=== PATIENT | female | born 1960 | race Caucasian/White ===

== ENCOUNTER → 2017-07-17 | Outpatient (CLI) | payer OTHER ==
[~2017-07-17] MED LIST: AMLO2.5T PO; AUGM875T PO; HYDR50TA3 PO; IBUP200T47 PO
[2017-07-17 11:58] LABS: AUTOMATED NEUTROPHIL # 4.1 TH/MM3 (1.8-7.7); BASOPHIL # 0.1 TH/MM3 (0-0.2); BASOPHIL % 0.8 % (0.0-2.0); EOSINOPHIL # 0.2 TH/MM3 (0-0.4); EOSINOPHIL % 3.5 % (0.0-4.0); HEMOGLOBIN 15.1 GM/DL (11.6-15.3); LYMPH % 25.3 % (9.0-44.0); LYMPHOCYTE # 1.7 TH/MM3 (1.0-4.8); MEAN CELL VOLUME 87.1 FL (80.0-100.0); MEAN CORPUSCULAR HEMOGLOBIN 28.6 PG (27.0-34.0); MEAN CORPUSCULAR HGB CONC 32.8 % (32.0-36.0); MEAN PLATELET VOLUME 8.4 FL (7.0-11.0); MONO % 6.9 % (0.0-8.0); MONOCYTE # 0.5 TH/MM3 (0-0.9); NEUT % 63.5 % (16.0-70.0); PLATELET COUNT 274 TH/MM3 (150-450); RED BLOOD COUNT 5.28 MIL/MM3 (4.00-5.30); RED CELL DISTRIBUTION WIDTH 12.8 % (11.6-17.2); WHITE BLOOD COUNT 6.6 TH/MM3 (4.0-11.0)
[2017-07-17 12:05] LABS: BILIRUBIN, URINE NEG (NEG); BLOOD, URINE NEG (NEG); GLUCOSE,URINE NEG (NEG); KETONE, URINE NEG (NEG); NITRITE,URINE NEG (NEG); URINE COLOR YELLOW (YELLW/STRAW); URINE LEUKOCYTE ESTERASE NEG (NEG)
[2017-07-17 12:07] LABS: CHLORIDE 104 MEQ/L (98-107); SODIUM (NA) 140 MEQ/L (136-145)
[2017-07-17 12:10] LABS: BICARBONATE 28.7 MEQ/L (21.0-32.0)
[2017-07-17 12:11] LABS: BLOOD UREA NITROGEN 15 MG/DL (7-18); GLUCOSE,RANDOM 100 MG/DL (74-106)
[2017-07-17 12:12] LABS: WBC, URINE 0-2 /hpf (0-5)
[2017-07-17 12:13] LABS: ALT (GPT) 24 U/L (10-53)
[2017-07-17 12:13] LABS: SQUAMOUS EPITHELIAL CELL URINE 0-5 /hpf (0-5)
[2017-07-17 12:14] LABS: AST (GOT) 17 U/L (15-37); CREATININE 0.72 MG/DL (0.50-1.00); GLOMERULAR FILTRATION RATE 83 ML/MIN (>89)
[2017-07-17 12:15] LABS: TOTAL BILIRUBIN ADULT 0.4 MG/DL (0.2-1.0); TOTAL PROTEIN 7.8 GM/DL (6.4-8.2)
[2017-07-17 12:16] LABS: ALKALINE PHOSPHATASE 102 U/L (45-117)
== END ==
LOC: PHPRE 11:11
PROVIDERS: ATTEND Surgery
DX: Z01.812 Encounter for preprocedural laboratory examination (principal)
CPT/HCPCS: 80053; 81001; 85025; 85610; 85730

== ENCOUNTER → 2017-07-24 | Day surgery (SDC) | payer OTHER ==
--- NOTE | 2017-07-19 15:17 | MH ---
cc: Sophie Maier MD DATE OF ADMISSION: 07/24/2017 ADMITTING DIAGNOSIS: Torn lateral meniscus right knee, now for arthroscopy right knee. HISTORY OF PRESENT ILLNESS: A 57-year-old female who is being admitted today for arthroscopy of her right knee due to torn meniscus. OTHER PAST HISTORY: The patient has a history of hypertension, low back pain, previous head injury and neck pain. CURRENT MEDICATIONS: Amlodipine 2.5 mg daily. PREVIOUS SURGERIES: Arthroscopy of her left knee and shoulder arthroscopy. REVIEW OF SYSTEMS: Noncontributory. FAMILY HISTORY: Noncontributory. SOCIAL HISTORY: She does not smoke or drink. ALLERGIES: NO KNOWN ALLERGIES. PHYSICAL EXAMINATION: GENERAL: We find a 57-year-old female, well-developed, well-nourished, alert and oriented x 3, complaining of pain in her right knee. VITAL SIGNS: Blood pressure 162/90, pulse 66 and regular, respirations 16, temperature 97.9, pulse oximetry 96% on room air. HEENT: Eyes PERRLA. EOMI. Ears, nose, mouth clear. NECK: Supple. LUNGS: Clear. HEART: Regular rate. ABDOMEN: Soft. Positive bowel sounds. Nontender. EXTREMITIES: Reveals the right knee to be tender about the medial and lateral joint margins. No swelling or erythema. She is neurovascularly intact to her toes. IMPRESSION AT THIS TIME: Torn lateral meniscus, right knee. PLAN: Admission for arthroscopy right knee today. The patient was given prescription for postoperative pain control in the office. Sophie Maier MD JRR/TL , 01:54 PM , 03:15 PM
[~2017-07-24] VITALS: Ht 167.6 cm; Wt 91.0 kg
[~2017-07-24] MED LIST changes: +ACETAMINOPHEN 1000 MG/100 ML 100 ML IV ONE; +APREPITANT 40 MG CAP ONE; -AUGM875T PO; +BUPIVACAINE HCL PF 0.25% 30 ML VIAL ONE; +CHLORHEXIDINE GLUCONATE 2 % 1 PACK (2 CLOTHS) TOPICAL PRN; +CHLORHEXIDINE GLUCONATE 4% SOLN 120 ML BTL TOPICAL SCH; +DEXAMETHASONE SOD PHOS 4 MG/ML VIAL ONE; +FAMOTIDINE 20 MG/2 ML VIAL ONE; -HYDR50TA3 PO; -IBUP200T47 PO; +LACTATED RINGER'S 1000 ML IV PRN; +METOPROLOL TARTRATE 25 MG TAB PO PRN; +POVIDONE IODINE 5% (ANTISEPSIS KIT) 4 APPLICATIONS EACH NARE PRN; +SODIUM CHLORID 0.9% 500 ML IV PRN; +ceFAZolin 2 GM PREMIX 50 ML IV SCH; +fentaNYL CITRATE 250 MCG/5 ML AMP ONE
[2017-07-24 08:45] VITALS: PULSE 65
[2017-07-24 09:15] VITALS: PULSE 70; TEMP 97.9
[2017-07-24 09:45] VITALS: BP 157/92; PULSE 64; RESP 16; O2SAT 98
--- NOTE | 2017-07-24 13:17 | MP ---
cc: Sophie Maier MD DATE OF OPERATION: 07/24/2017 PREOPERATIVE DIAGNOSIS: Torn lateral meniscus, right knee. POSTOPERATIVE DIAGNOSIS: Torn lateral meniscus, right knee. SURGERY PERFORMED: Arthroscopy with excision of torn lateral meniscus and ArthroCare shaving of lateral compartment, right knee. SURGEON: MD Darrion ANESTHESIA: LMA. PROCEDURE IN DETAIL: The patient was brought to the operating room and placed on the operating room table in the supine position. After successful induction of general anesthesia, the patient's ?? leg was prepped and draped in the usual manner. The knee was then placed in a knee yeager and tightened. Arthroscopic examination was then performed by making a stab wound over the proximal superior and medial aspect of the patellofemoral joint for insertion of the inflow cannula and fluid, followed by stab wounds over the medial and lateral joint margins respectively for insertion of the arthroscope, shaver and probe. Arthroscopic examination was then performed which revealed intact medial compartment, intact anterior cruciate, intact patellofemoral joint. Lateral compartment found to have a large degenerative tear of the lateral meniscus, which was shaved and smoothed using the ArthroCare cutter, shaver and probe to afford a smooth surface. Some chondromalacia of the weightbearing surface of both the femoral and tibial surfaces noted, which were smoothed using the ArthroCare system. Patellofemoral joint found to be intact. The wound irrigated copiously with lactated Ringer's solution, excess fluid removed. A 10 mL of 0.25% Marcaine plain inserted in the knee joint. Skin approximated with interrupted 3-0 nylon suture. Wet and then dry dressing applied to the wound followed by Xeroform gauze, sterile dressing and thigh-high Librado wrap. No tourniquet utilized. Estimated blood loss was 5 mL . Sponge and suture counts correct. The patient tolerated the procedure well and left the operating room in satisfactory condition. MD ANDREW Trivedi/SOO , 08:46 AM , 09:02 AM
== END | disposition home or self-care (01) ==
LOC: PHSDC 06:37
PROVIDERS: ATTEND Surgery
DX: S83.281A Other tear of lateral meniscus, current injury, right knee, initial encounter (principal); I10 Essential (primary) hypertension
CPT/HCPCS: 01400; 29881; J0131; J0690; J1100; J3010; J7120; J8501